=== PATIENT | female | born 1975 | race Caucasian/White ===

== ENCOUNTER 2019-11-09 16:43 | Emergency (ER) | payer MEDICARE ==
[~2019-11-09] VITALS: Ht 152.4 cm; Wt 59.9 kg
[2019-11-09] MEDS ORDERED: ZEMPEP (16:58)
[2019-11-09] MEDS ORDERED: SYMBICORT160 MCG/4. INH (16:59)
[2019-11-09] MEDS ORDERED: COMBIVENT INH (16:59)
[2019-11-09] MEDS ORDERED: [UNRECOGNIZED DRUG - OTHER] (16:59)
[2019-11-09] MEDS ORDERED: HUMALOG100 UNIT/1 SUBQ (17:00)
[2019-11-09] MEDS ORDERED: [UNRECOGNIZED DRUG - OTHER] (17:00)
[2019-11-09] MEDS ORDERED: SUPER THERAVIT1 EACH PO (17:00)
[2019-11-09 17:19] LABS: HEMATOCRIT 45.5 % (37.0-47.0); MCH 32.9 pg (26.0-34.0); MCV 93.7 fL (80.0-100.0); MPV 7.7 fl. (7.2-11.1); NUCLEATED RBCS 0 /100WBC; PLATELET COUNT* 273 thou/uL (150-400); RBC 4.86 mil/uL (4.20-5.00); RDW-CV 12.6 % (10.5-14.5); WBC 13.9 thou/uL (4.0-11.0)
[2019-11-09 17:27] LABS: CALCIUM 8.8 mg/dL (8.5-10.1); CREATININE 1.2 mg/dL (0.6-1.3); POTASSIUM 4.2 mmol/L (3.5-5.1)
[2019-11-09 17:36] LABS: ALBUMIN 4.1 g/dL (3.4-5.0); TOTAL BILIRUBIN 1.4 mg/dL (<0.1-1.0); TOTAL PROTEIN 7.9 g/dL (6.4-8.2)
[2019-11-09 17:54] LABS: ABSOLUTE LYMPHOCYTES 1.1 thou/uL (0.8-5.3); ABSOLUTE MONOCYTES 0.4 thou/uL (0.0-1.2); ABSOLUTE NEUTROPHILS 12.4 thou/uL (1.6-8.1); ATYPICAL LYMPHS 6 %; PLATELET ESTIMATE ADEQUATE
[2019-11-09 19:17] LABS: URINE BILIRUBIN NEGATIVE (Negative); URINE BLOOD NEGATIVE (Negative); URINE CLARITY CLEAR; URINE COLOR YELLOW; URINE GLUCOSE-RANDOM 3+ (Negative); URINE KETONES 2+ (Negative); URINE LEUKOCYTES-REFLEX NEGATIVE (Negative); URINE NITRITE-REFLEX NEGATIVE (Negative); URINE PROTEIN NEGATIVE (Negative); URINE SPECIFIC GRAVITY <= 1.005 (1.005-1.030); URINE UROBILINOGEN 0.2 E.U./dl (0.2-1.0)
[2019-11-09 19:27] LABS: AMP/METHAMP Negative (Negative); BARBITURATES Negative (Negative); BENZODIAZEPINES Negative (Negative); COCAINE Negative (Negative); METHADONE Negative (Negative); OPIATES POSITIVE (Negative); PCP Negative (Negative); THC Negative (Negative)
[2019-11-09 21:10] VITALS: BP 114/62
== END 2019-11-09 21:10 | disposition short-term general hospital (02) ==
LOC: M.ERS 16:43 → EDBD 16:43 → M.ERS 21:10
PROVIDERS: Physician Assistant
DX: K56.600 Partial intestinal obstruction, unspecified as to cause (principal); N20.0 Calculus of kidney; Z20.828 Contact with and (suspected) exposure to other viral communicable diseases; E10.9 Type 1 diabetes mellitus without complications; Z90.710 Acquired absence of both cervix and uterus; Z79.899 Other long term (current) drug therapy